=== PATIENT | male | born 1960 | race Caucasian/White ===

== ENCOUNTER 2020-10-06 08:50 | Emergency (ER) | payer BC ==
[2020-10-06] MEDS ORDERED: Labetalol 100 MG/20 ML MDV IVPUSH ONE ×2 (09:15→09:52)
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
[2020-10-06 09:34] LABS: CHLORIDE,CL 96 mEq/L (98-106); SODIUM,NA 140 mEq/L (136-145)
[2020-10-06 09:41] LABS: PTT,PARTIAL THROMBOPLSTIN TIME 27.1 SEC (23.2-32.3)
[2020-10-06] MEDS ORDERED: Furosemide 40 MG/4 ML VIAL IVPUSH ONE (10:31)
[2020-10-06] MEDS ORDERED: hydrALAZINE 20 MG/ML SDV IVPUSH ONE (11:08)
== END 2020-10-06 12:40 ==
LOC: CC.ED 08:50
DX: I16.0 Hypertensive urgency (principal); I11.0 Hypertensive heart disease with heart failure; I50.9 Heart failure, unspecified; Z72.0 Tobacco use; Z20.822 Contact with and (suspected) exposure to COVID-19
CPT/HCPCS: 36415; 71046; 80053; 82550; 83615; 83690; 83735; 83880; 84484; 85025; 85379; 85610; 85730; 87635; 93005; 96374; 96375; 96376; 99285; J0360; J1940; J3490; U0002